=== PATIENT | male | born 1950 | race Caucasian/White ===

== ENCOUNTER → 2018-07-24 | Outpatient (CLI) | payer OTHER ==
--- NOTE | 2018-08-06 10:26 | MR ---
EXAMINATION TYPE: MR julio cine/lspine wo con DATE OF EXAM: 07/24/2018 COMPARISON: Outside MRI report from 2016. Images cannot be loaded into PACS system for direct compari son. HISTORY: Chronic progressive cervical and lumbar radiculopathy due to spondylosis with hand and leg w eakness per order. Leg and back pain for 2 years going into bilateral thighs and buttocks. Arm and hernández nd pain all per patient. TECHNIQUE: Multiplanar, multisequence imaging of the cervical and lumbar spine are performed without IV contrast. FINDINGS: C-SPINE: FINDINGS: Sagittal images of the cervical spine show the craniocervical junction to appear within nor mal limits. The cervical and upper thoracic spinal cord is normal in course, caliber, and signal. V ertebral alignment is anatomic. The vertebral body heights are normal. Moderate disc space narrowing and anterior spurring C6-C7 level is present . Posterior spur disc complex effacing anterior thecal sac at this level on sagittal images. The bone marrow signal intensity is within normal limits. Axial images at C2-C3 level show some uncovertebral facet degenerative changes bilaterally causing mi ld bilateral neural foraminal narrowing. Axial images at the C3-C4 level show right paracentral/foraminal spur disc complex and uncovertebral facet arthropathy effacing anterolateral thecal sac with moderate right greater than left bilateral n eural foraminal narrowing. Axial images at the C4-C5 level show uncovertebral facet degenerative changes as well as broad-based posterior disc protrusion, there is effacement of the anterior thecal sac and moderate right greater than left bilateral neural foraminal narrowing noted. Axial images at the C5-C6 level show broad-based right paracentral disc protrusion effacing anterolat eral thecal sac and causing asymmetric moderate to advanced right-sided neural foraminal narrowing. L eft-sided neural foramina is mildly narrowed. Axial images at the C6-C7 level show right paracentral spur disc complex effacing anterolateral theca l sac, there is moderate to advanced right greater than left bilateral neural foraminal narrowing. Axial images at C7-T1 level are felt to appear within normal limits on current study. IMPRESSION: Multilevel degenerative changes in the cervical spine as detailed above. Based on prior r eport progressive changes felt present at C5-C6 and C6-C7 level. L-SPINE: Sagittal images of the lumbar spine show vertebral body heights to appear satisfactory. There is slig ht grade 1 anterolisthesis of L4 on L5 and grade 1 retrolisthesis of L5 on S1. Multilevel disc desicc ation is present. There is mild to moderate disc space narrowing with vacuum disc phenomenon L5-S1 le davidson. The conus medullaris is normal in position and signal ending at L1-L2 disc space level. The bon e marrow signal intensity is within normal limits. Axial images show the T12-L1, L1-L2, and L2-L3 levels to appear within normal limits. Axial images at the L3-L4 level show mild broad disc bulge minimally effacing anterior thecal sac and mild facet degenerative changes bilaterally. Bilateral neural foramina show mild anterior inferior n eural foraminal narrowing. Axial images at the L4-L5 level show spondylolisthesis with moderate to advanced facet degenerative c hanges bilaterally. There is central disc protrusion effacing anterior thecal sac on axial image 8. T here is mild left and moderate right-sided inferior neural foraminal narrowing noted. Axial images at the L5-S1 level show mild facet degenerative changes bilaterally. There is central di sc protrusion seen but spinal canal is preserved on axial image 2. There is moderate left-sided neura l foraminal narrowing seen best sagittal image 5. Right-sided neural foramen is patent. No suspicious incidental retroperitoneal findings are seen. IMPRESSION: Multilevel degenerative changes in the mid to lower lumbar spine most prominent at L4-L5 and L5-S1 levels as detailed above, some interval progression likely present based on comparison with old outside MRI report.
== END ==
LOC: RADMRIMAIN 08:06
PROVIDERS: ATTEND Nurse Practitioner
DX: M48.02 Spinal stenosis, cervical region (principal); M48.061 Spinal stenosis, lumbar region without neurogenic claudication; M99.71 Connective tissue and disc stenosis of intervertebral foramina of cervical region; M99.73 Connective tissue and disc stenosis of intervertebral foramina of lumbar region; M43.16 Spondylolisthesis, lumbar region; M50.121 Cervical disc disorder at C4-C5 level with radiculopathy; M51.17 Intervertebral disc disorders with radiculopathy, lumbosacral region; M47.22 Other spondylosis with radiculopathy, cervical region; M47.27 Other spondylosis with radiculopathy, lumbosacral region; M46.92 Unspecified inflammatory spondylopathy, cervical region
CPT/HCPCS: 72141; 72148